=== PATIENT | male | born 1955 | race Caucasian/White ===

== ENCOUNTER → 2016-11-14 | Outpatient (CLI) | payer OTHER ==
[~2016-11-14] MED LIST: CINN1CAP2 PO; GLC/500 PO; GLYB-108 PO; LISI10TA PO
[2016-11-14 17:33] LABS: BASO % 0.4 %; BASO ABS # 0.04 K/uL (0-0.2); COMPLETE YES; HEMATOCRIT 45.8 % (42-52); IG% 0.3 %; LYMPH % 33.2 %; LYMPH ABS # 3.15 K/uL (1.2-3.4); MEAN CELL VOLUME 86.4 fL (80-100); MEAN CORPUSCULAR HGB CONC 34.7 g/dl (32-36); MEAN PLATELET VOLUME 11.3 fL (7.4-10.4); MONO % 6.8 %; NEUT % 57.3 %; PLATELET COUNT 186 K/uL (130-400); WHITE BLOOD COUNT 9.49 K/uL (4.8-10.8)
[2016-11-14 18:20] LABS: ALT/SGPT 30 U/L (12-78); BLOOD UREA NITROGEN 13 mg/dl (7-18); CALCIUM 8.6 mg/dl (8.5-10.1); CARBON DIOXIDE 21 mmol/L (21-32); CHLORIDE 104 mmol/L (98-107); CHOLESTEROL 181 mg/dl (0-200); CREATININE 0.83 mg/dl (0.60-1.40); GLUCOSE 290 mg/dl (70-99); SODIUM 137 mmol/L (136-145)
[2016-11-14 18:31] LABS: ALKALINE PHOSPHATASE 78 U/L (45-117); AST/SGOT 13 U/L (15-37); CHOLESTEROL/HDL RATIO 4.9; HDL CHOLESTEROL 37 mg/dl; LDL CHOLESTEROL CALCULATED 105 mg/dl; TRIGLYCERIDES 197 mg/dl (0-150); VERY LOW DENSITY LIPOPROT CALC 39 mg/dl
[2016-11-15 07:01] LABS: ESTIMATED AVERAGE GLUCOSE 298 mg/dl; HA1C FLAG Normal (Normal)
== END | disposition home or self-care (01) ==
LOC: C.LABBFT 12:16
PROVIDERS: ATTEND Internal Medicine
DX: E11.65 Type 2 diabetes mellitus with hyperglycemia (principal); Z12.5 Encounter for screening for malignant neoplasm of prostate

== ENCOUNTER → 2016-11-14 | Outpatient (CLI) | payer OTHER ==
--- NOTE | 2016-11-14 13:52 | DIAGNOSTIC IMAGING REPORT ---
RIGHT HIP UNILATERAL 2 VIEWS CLINICAL HISTORY: Right hip pain COMPARISON: None. DISCUSSION: No fractures are visualized. There is a small corticated ossicle projected superior to the greater trochanter. The joint space appears well-preserved for age. There are no erosive or destructive changes. IMPRESSION: 1. No acute fracture 2. No destructive lesions identified 3. The joint space appears well-preserved for age Electronically signed by: Avery Sequeira M.D. 11/14/2016 1:50 PM Dictated Date/Time: 11/14/2016 1:49 PM
--- NOTE | 2016-11-14 13:57 | DIAGNOSTIC IMAGING REPORT ---
LEFT HIP UNILATERAL 2 VIEWS CLINICAL HISTORY: Left hip pain COMPARISON: None. DISCUSSION: No fractures or dislocations are visualized. There are no erosive or destructive changes. The joint space appears well-preserved for age. IMPRESSION: 1. No acute fractures 2. No destructive lesions identified 3. The joint space appears well-preserved for age. Electronically signed by: Avery Sequeira M.D. 11/14/2016 1:56 PM Dictated Date/Time: 11/14/2016 1:52 PM
--- NOTE | 2016-11-14 14:01 | DIAGNOSTIC IMAGING REPORT ---
L-SPINE MIN 4 VIEWS ROUTINE CLINICAL HISTORY: Bilateral hip and lower back pain COMPARISON STUDY: No previous studies for comparison. FINDINGS: There is a mild spinal curvature convex to the left. There are no acute fractures or subluxations. There are multilevel degenerative changes. There are small posterior osteophytes at the L3-4 level. IMPRESSION: 1. No acute fractures or subluxations identified 2. Suspected disc osteophyte complex at the L3-4 level. Electronically signed by: Avery Sequeira M.D. 11/14/2016 2:00 PM Dictated Date/Time: 11/14/2016 1:59 PM
== END | disposition home or self-care (01) ==
LOC: C.RAD1850 13:00
PROVIDERS: ATTEND Internal Medicine
DX: M25.551 Pain in right hip (principal); M25.552 Pain in left hip

== ENCOUNTER 2017-11-04 12:38 | Emergency (ER) | payer OTHER ==
[~2017-11-04] VITALS: Ht 180.3 cm; Wt 106.0 kg
[2017-11-04 12:43] VITALS: TEMP 36.9; Ht 180.3 cm; Wt 106.0 kg
[2017-11-04] MEDS ORDERED: SODIUM CHLORIDE 0.9% 1000ML 1,000 ML IV STA ×2 (12:49→13:43)
--- NOTE | 2017-11-04 12:50 | EMERGENCY ROOM VISIT NOTE ---
History Report prepared by Mikel: Oswaldo Stein Under the Supervision of: Dr. Ilan Marshall D.O. First contact with patient: 12:42 Chief Complaint: HYPERGLYCEMIA Stated Complaint: U History of Present Illness The patient is a 62 year old male who presents to the Emergency Room with complaints of dizziness that onset just prior to arrival. 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 His symptoms presented with bilateral arm numbness, followed by lightheadedness/ dizziness, and a headache. The patient is a diabetic and takes Metformin, but admits to not taking his medication/eating as he should. His blood glucose level was 509 upon arrival to the department. He has been urinating more frequently lately. Source of History: patient Onset: just prior to arrival Position: head Quality: other (Dizziness) Associated Symptoms: + headache, + urinary symptoms Note: Arm numbness light headed Review of Systems See HPI for pertinent positives & negatives. A total of 10 systems reviewed and were otherwise negative. Past Medical & Surgical Medical Problems: (1) HTN (hypertension) Surgical Problems: (1) H/O cardiac catheterization HTN (hypertension) Family History Cancer Social History Smoking Status: Never Smoker Smokeless Tobacco Use: No Alcohol Use: none Occupation Status: employed Current/Historical Medications Scheduled Aspirin (Aspirin), 325 MG PO DAILY Cinnamon (Cinnamon), 2 CAP PO BID Glyburide (Micronase), 2.5 MG PO BID Lisinopril (Prinivil), 10 MG PO HS Metformin Hcl (Glucophage), 500 MG PO BID Allergies Coded Allergies: No Known Allergies (Verified , 11/04/17) Physical Exam Vital Signs Date Time Temp Pulse Resp B/P (MAP) Pulse Ox O2 Delivery O2 Flow Rate FiO2 11/04/17 15:55 82 154/80 96 11/04/17 14:07 74 156/89 95 Room Air 11/04/17 13:03 88 11/04/17 12:43 36.9 91 152/100 94 Room Air Physical Exam GENERAL: Patient is awake, alert, and in no acute distress. Patient is resting comfortably and showing no signs of anxiety EYES: The conjunctivae are clear. The pupils are round and reactive. EARS, NOSE, MOUTH AND THROAT: The nose is without any evidence of any deformity. Mucous membranes are dry tongue is midline NECK: The neck is nontender and supple. RESPIRATORY: Normal respiratory effort is noted there is no evidence of wheezing rhonchi or rales CARDIOVASCULAR: Regular rate and rhythm noted there no rubs or gallops normal S1 normal S2. Systolic murmur is suggested. GASTROINTESTINAL: The abdomen is mildly distended but soft. Bowel sounds are present in all quadrants. Abdomen is nontender PELVIS: The Pelvis is stable. No tenderness to palpation is noted. BACK: No midline tenderness or or step-off noted range of motion in flexion extension as well as rotation no signs of muscle spasm noted MUSCULOSKELETAL/EXTREMITIES: There is no evidence of gross deformity full range of motion is noted in the hips and shoulders SKIN: There is no obvious evidence of any rash. There are no petechiae, pallor or cyanosis noted. NEUROLOGIC: Patient is awake alert and oriented x3. Medical Decision & Procedures ER Provider Diagnostic Interpretation: Radiology results as stated below per my review and radiologist interpretation: ABDOMEN AND PELVIS CT WITHOUT CONTRAST CT DOSE: 805.88 mGy.cm HISTORY: Right upper quadrant abdominal pain. TECHNIQUE: Multiaxial CT images of the abdomen and pelvis were performed without contrast. A dose lowering technique was utilized adhering to the principles of ALARA. COMPARISON STUDY: None. FINDINGS: The lung bases are clear. No pneumoperitoneum. No pneumatosis. No suspicious lytic or blastic osseous lesions. Hepatic steatosis. The unenhanced gallbladder, pancreas, spleen, adrenal glands, and kidneys are unremarkable. No hydronephrosis. No retroperitoneal lymphadenopathy. Moderate calcified plaque within the normal caliber abdominal aorta. The bladder is unremarkable. Suboptimal evaluation for bowel pathology due to the lack of intravenous and oral contrast. However, there is no definite bowel wall thickening or obstruction. A few colonic diverticula. The appendix is not identified and is likely surgically absent. Moderate stool within the proximal colon. IMPRESSION: 1. No bowel wall thickening or obstruction. 2. No renal or ureteral calculi. No hydronephrosis. 3. Hepatic steatosis. Electronically signed by: Harshal Hinds M.D. 11/04/2017 1:48 PM Dictated Date/Time: 11/04/2017 1:42 PM CHEST ONE VIEW PORTABLE CLINICAL HISTORY: Abdominal pain. COMPARISON STUDY: Chest radiograph February 10, 2012. FINDINGS: Lung volumes are normal. No pneumothorax or pleural effusion is noted. Cardiomediastinal silhouette is normal. Pulmonary vascularity is normal. There is no consolidation to suggest pneumonia. IMPRESSION: No acute cardiopulmonary findings. Electronically signed by: Ta De Paz M.D. 11/04/2017 1:38 PM Dictated Date/Time: 11/04/2017 1:[address] NON[address]AST CT DOSE: 614.27 mGy.cm HISTORY: Headache. TECHNIQUE: Multiaxial CT images of the head were performed without the use of intravenous contrast. Automated exposure control was utilized for this study. A dose lowering technique was utilized adhering to the principles of ALARA. Comparison: None. Findings: The paranasal sinuses and mastoid air cells are clear. The calvarium and skull base are intact. The ventricles and sulci are within normal limits. There is no mass, hematoma, midline shift, or acute infarct. Impression: No acute intracranial abnormality. Electronically signed by: Harshal Hinds M.D. 11/04/2017 1:35 PM Dictated Date/Time: 11/04/2017 1:27 PM Laboratory Results 11/04/17 12:55 Red Blood Count 5.13, Mean Corpuscular Volume 86.0, Mean Corpuscular Hemoglobin 30.4, Mean Corpuscular Hemoglobin Concent 35.4, Mean Platelet Volume 10.9, Neutrophils (%) (Auto) 54.5, Lymphocytes (%) (Auto) 36.9, Monocytes (%) (Auto) 6.7, Eosinophils (%) (Auto) 1.4, Basophils (%) (Auto) 0.4, Neutrophils # (Auto) 3.93, Lymphocytes # (Auto) 2.66, Monocytes # (Auto) 0.48, Eosinophils # (Auto) 0.10, Basophils # (Auto) 0.03 11/04/17 12:55 Test 11/04/17 12:55 11/04/17 14:10 White Blood Count 7.21 K/uL (4.8-10.8) Red Blood Count 5.13 M/uL (4.7-6.1) Hemoglobin 15.6 g/dL (14.0-18.0) Hematocrit 44.1 % (42-52) Mean Corpuscular Volume 86.0 fL (80-100) Mean Corpuscular Hemoglobin 30.4 pg (25-34) Mean Corpuscular Hemoglobin Concent 35.4 g/dl (32-36) Platelet Count 161 K/uL (130-400) Mean Platelet Volume 10.9 fL (7.4-10.4) Neutrophils (%) (Auto) 54.5 % Lymphocytes (%) (Auto) 36.9 % Monocytes (%) (Auto) 6.7 % Eosinophils (%) (Auto) 1.4 % Basophils (%) (Auto) 0.4 % Neutrophils # (Auto) 3.93 K/uL (1.4-6.5) Lymphocytes # (Auto) 2.66 K/uL (1.2-3.4) Monocytes # (Auto) 0.48 K/uL (0.11-0.59) Eosinophils # (Auto) 0.10 K/uL (0-0.5) Basophils # (Auto) 0.03 K/uL (0-0.2) RDW Standard Deviation 37.6 fL (36.4-46.3) RDW Coefficient of Variation 12.0 % (11.5-14.5) Immature Granulocyte % (Auto) 0.1 % Immature Granulocyte # (Auto) 0.01 K/uL (0.00-0.02) Prothrombin Time 10.0 SECONDS (9.0-12.0) Prothromb Time International Ratio 1.0 (0.9-1.1) Activated Partial Thromboplast Time 23.8 SECONDS (21.0-31.0) Partial Thromboplastin Ratio 0.9 Anion Gap 11.0 mmol/L (3-11) Est Creatinine Clear Calc Drug Dose 91.5 ml/min Estimated GFR () 88.4 Estimated GFR (Non- 76.2 BUN/Creatinine Ratio 14.9 (10-20) Estimated Average Glucose 349 mg/dl Hemoglobin A1c 13.8 % (4.5-5.6) Calcium Level 9.1 mg/dl (8.5-10.1) Total Bilirubin 0.3 mg/dl (0.2-1) Direct Bilirubin < 0.1 mg/dl (0-0.2) Aspartate Amino Transf (AST/SGOT) 14 U/L (15-37) Alanine Aminotransferase (ALT/SGPT) 34 U/L (12-78) Alkaline Phosphatase 138 U/L (45-117) Total Creatine Kinase 97 U/L (39-308) Creatine Kinase MB 3.9 ng/ml (0.5-3.6) Creatine Kinase MB Ratio 4.0 (0-3.0) Troponin I < 0.015 ng/ml (0-0.045) Total Protein 6.9 gm/dl (6.4-8.2) Albumin 3.5 gm/dl (3.4-5.0) Lipase 345 U/L (73-393) Beta-Hydroxybutyric Acid 2.18 mg/dL (0.2-2.81) Bedside Glucose 443 mg/dl (70-99) Laboratory results per my review. Medications Administered Medications (Trade) Dose Ordered Sig/Az Route Start Time Stop Time Status Last Admin Dose Admin Sodium Chloride 1,000 ml @ 999 mls/hr Q1H1M STAT IV 11/04/17 12:49 11/04/17 13:49 DC 11/04/17 12:49 999 MLS/HR Sodium Chloride 1,000 ml @ 999 mls/hr Q1H1M STAT IV 11/04/17 13:43 11/04/17 14:43 DC 11/04/17 13:43 999 MLS/HR Insulin Human Regular (novoLIN-R U-100 PER UNIT) 6 units NOW STAT IV 11/04/17 13:54 11/04/17 13:55 DC 11/04/17 14:23 6 UNITS ECG Indication: weakness Rate (beats per minute): 84 Rhythm: normal sinus Findings: no acute ischemic change, no ectopy Comparison ECG Date: 02/10/2012 Change: no significant change Change: Patient's EKG was interpreted by me. ED Course 1244: The patient was evaluated in room B6. A complete history and physical examination were performed. 1249: Ordered Sodium Chloride 1000 mL @ 999 mL/hr IV. 1343: Ordered Sodium Chloride 1000 mL @ 999 mL/hr IV. 1354: Ordered Regular human insulin 6 units. 1456: Upon reevaluation, the patient is resting in bed. I discussed the results and treatment plan with him. verbalized agreement of the treatment plan. The patient was discharged home. Medical Decision Differential diagnosis: Etiologies such as metabolic, infection, hypo/hyperglycemia, electrolyte abnormalities, cardiac sources, intracerebral event, toxicologic, neurologic, as well as others were entertained. Nursing notes reviewed. The patient is a 62-year-old male who presented to the emergency department for an evaluation of dizziness and near syncope. 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 He was noted to have very high blood sugar. The patient states that he has a history of diabetes but I do not feel he is very compliant with his medications. His blood sugar was found to be very elevated. He was treated with IV fluids and IV insulin. On subsequent reevaluation he was feeling much better. I discussed the patient's laboratory and radiographic studies with him. He was encouraged to continue all medications as prescribed and call his primary care physician in the morning to schedule a follow-up appointment. He was also encouraged to return to the emergency department immediately if symptoms change worsen or the need arises. Blood Pressure Screening Patient's blood pressure: Elevated blood pressure Impression Primary Impression: Near syncope Additional Impressions: Dehydration Hyperglycemia Scribe Attestation The scribe's documentation has been prepared under my direction and personally reviewed by me in its entirety. I confirm that the note above accurately reflects all work, treatment, procedures, and medical decision making performed by me. Departure Information Dispostion Home / Self-Care Referrals Toñito Aguilar M.D. (PCP) Patient Instructions My [facility] Problem Qualifiers
[2017-11-04] MEDS ORDERED: GLYB5TAB8 PO (13:01)
[2017-11-04] MEDS ORDERED: ASPI325T45 PO (13:04)
[2017-11-04 13:08] LABS: BASO % 0.4 %; BASO ABS # 0.03 K/uL (0-0.2); EOS % 1.4 %; HEMATOCRIT 44.1 % (42-52); HEMOGLOBIN 15.6 g/dL (14.0-18.0); IG# 0.01 K/uL (0.00-0.02); LYMPH % 36.9 %; LYMPH ABS # 2.66 K/uL (1.2-3.4); MEAN CORPUSCULAR HEMOGLOBIN 30.4 pg (25-34); MEAN CORPUSCULAR HGB CONC 35.4 g/dl (32-36); MEAN PLATELET VOLUME 10.9 fL (7.4-10.4); MONO % 6.7 %; MONO ABS # 0.48 K/uL (0.11-0.59); NEUT % 54.5 %; NEUT ABS # 3.93 K/uL (1.4-6.5); PLATELET COUNT 161 K/uL (130-400); RED CELL DISTRIBUTION WIDTH SD 37.6 fL (36.4-46.3); WHITE BLOOD COUNT 7.21 K/uL (4.8-10.8)
[2017-11-04 13:16] LABS: PTT PATIENT 23.8 SECONDS (21.0-31.0)
--- NOTE | 2017-11-04 13:36 | DIAGNOSTIC IMAGING REPORT ---
HEAD CT NONCONTRAST CT DOSE: 614.27 mGy.cm HISTORY: Headache. TECHNIQUE: Multiaxial CT images of the head were performed without the use of intravenous contrast. Automated exposure control was utilized for this study. A dose lowering technique was utilized adhering to the principles of ALARA. Comparison: None. Findings: The paranasal sinuses and mastoid air cells are clear. The calvarium and skull base are intact. The ventricles and sulci are within normal limits. There is no mass, hematoma, midline shift, or acute infarct. Impression: No acute intracranial abnormality. Electronically signed by: Harshal Hinds M.D. 11/04/2017 1:35 PM Dictated Date/Time: 11/04/2017 1:27 PM
--- NOTE | 2017-11-04 13:40 | DIAGNOSTIC IMAGING REPORT ---
CHEST ONE VIEW PORTABLE CLINICAL HISTORY: Abdominal pain. COMPARISON STUDY: Chest radiograph February 10, 2012. FINDINGS: Lung volumes are normal. No pneumothorax or pleural effusion is noted. Cardiomediastinal silhouette is normal. Pulmonary vascularity is normal. There is no consolidation to suggest pneumonia. IMPRESSION: No acute cardiopulmonary findings. Electronically signed by: Ta De Paz M.D. 11/04/2017 1:38 PM Dictated Date/Time: 11/04/2017 1:38 PM
[2017-11-04 13:41] LABS: HEMOGLOBIN A1C 13.8 % (4.5-5.6)
[2017-11-04 13:44] LABS: ALBUMIN 3.5 gm/dl (3.4-5.0); ALKALINE PHOSPHATASE 138 U/L (45-117); ALT/SGPT 34 U/L (12-78); AST/SGOT 14 U/L (15-37); BLOOD UREA NITROGEN 16 mg/dl (7-18); CALCIUM 9.1 mg/dl (8.5-10.1); CARBON DIOXIDE 22 mmol/L (21-32); CKMB 3.9 ng/ml (0.5-3.6); CREATININE 1.05 mg/dl (0.60-1.40); GLUCOSE 593 mg/dl (70-99); LIPASE 345 U/L (73-393); POTASSIUM 4.2 mmol/L (3.5-5.1); SODIUM 132 mmol/L (136-145); TOTAL PROTEIN 6.9 gm/dl (6.4-8.2)
--- NOTE | 2017-11-04 13:49 | DIAGNOSTIC IMAGING REPORT ---
ABDOMEN AND PELVIS CT WITHOUT CONTRAST CT DOSE: 805.88 mGy.cm HISTORY: Right upper quadrant abdominal pain. TECHNIQUE: Multiaxial CT images of the abdomen and pelvis were performed without contrast. A dose lowering technique was utilized adhering to the principles of ALARA. COMPARISON STUDY: None. FINDINGS: The lung bases are clear. No pneumoperitoneum. No pneumatosis. No suspicious lytic or blastic osseous lesions. Hepatic steatosis. The unenhanced gallbladder, pancreas, spleen, adrenal glands, and kidneys are unremarkable. No hydronephrosis. No retroperitoneal lymphadenopathy. Moderate calcified plaque within the normal caliber abdominal aorta. The bladder is unremarkable. Suboptimal evaluation for bowel pathology due to the lack of intravenous and oral contrast. However, there is no definite bowel wall thickening or obstruction. A few colonic diverticula. The appendix is not identified and is likely surgically absent. Moderate stool within the proximal colon. IMPRESSION: 1. No bowel wall thickening or obstruction. 2. No renal or ureteral calculi. No hydronephrosis. 3. Hepatic steatosis. Electronically signed by: Harshal Hinds M.D. 11/04/2017 1:48 PM Dictated Date/Time: 11/04/2017 1:42 PM
[2017-11-04] MEDS ORDERED: NovoLIN-R INSULIN PER UNIT CHARGE IV STA (13:54)
[2017-11-04 15:55] VITALS: BP 154/80; PULSE 82; O2SAT 96
== END 2017-11-04 15:59 | disposition home or self-care (01) ==
LOC: EDSEX 12:38 → EDBD 12:38 → C.EDB 12:39
DX: E11.65 Type 2 diabetes mellitus with hyperglycemia (principal); E86.0 Dehydration; R55 Syncope and collapse; I10 Essential (primary) hypertension; Z91.14 Patient's other noncompliance with medication regimen; Z79.899 Other long term (current) drug therapy; Z79.82 Long term (current) use of aspirin; Z79.84 Long term (current) use of oral hypoglycemic drugs; Z80.9 Family history of malignant neoplasm, unspecified

== ENCOUNTER → 2018-01-19 | Outpatient (CLI) | payer OTHER ==
[~2018-01-19] MED LIST changes: +AMOX875T PO; +ASPECOTC PO; -GLYB-108 PO; +GLYB5TAB8 PO; +LVMI SQ
== END | disposition home or self-care (01) ==
LOC: C.LABSPEC 17:35
PROVIDERS: ATTEND Internal Medicine
DX: E11.628 Type 2 diabetes mellitus with other skin complications (principal)

== ENCOUNTER → 2018-01-20 | Outpatient (CLI) | payer OTHER ==
--- NOTE | 2018-01-20 10:10 | DIAGNOSTIC IMAGING REPORT ---
R TOE(S) MIN 2 VIEWS CLINICAL HISTORY: 62 years-old Male presenting with E11.628 Diabetic infection of right foot right. TECHNIQUE: Frontal, oblique, and lateral views of the right second toe were obtained. COMPARISON: 09/14/2010. FINDINGS: No osseous erosion or periosteal reaction at the left second toe. No evidence of soft tissue emphysema. Joint spaces are preserved. No acute fracture or malalignment. No advanced degenerative change. No radiographic soft tissue abnormality. IMPRESSION: No radiographic evidence of osteomyelitis. Electronically signed by: Lucio Muro M.D. 01/20/2018 10:09 AM Dictated Date/Time: 01/20/2018 10:07 AM
== END | disposition home or self-care (01) ==
LOC: C.RAD1850 09:52
PROVIDERS: ATTEND Internal Medicine
DX: E11.628 Type 2 diabetes mellitus with other skin complications (principal)